=== PATIENT | male | born 1940 | race Caucasian/White ===

== ENCOUNTER 2022-07-25 09:30 | Outpatient (RCR) | payer OTHER, SELFPAY | END 2022-07-25 11:30 | disposition home or self-care (01) | PROVIDERS: PCP Family Medicine; Visit Provider Family Medicine | DX: M25.512 Pain in left shoulder (principal); Z51.89 Encounter for other specified aftercare | CPT/HCPCS: 97110; 97140; 97161 ==

== ENCOUNTER 2022-08-09 08:22 | Outpatient (CLI) | payer OTHER, SELFPAY ==
[2022-08-09 09:22] LABS: Chloride* 105 mmol/L (96-114)
[2022-08-09 09:23] LABS: Albumin* 3.6 g/dL (3.3-5.0); Potassium* 4.4 mmol/L (3.6-5.1); Sodium* 138 mmol/L (135-149)
[2022-08-09 09:25] LABS: Cholesterol* 134 mg/dL (90-199); Estimated Glomerular Filt Rate 75 ml/min
[2022-08-09 09:26] LABS: Alanine Aminotransferase* 20 U/L (4-50); Alkaline Phosphatase* 72 U/L (40-150); Aspartate Amino Transferase* 23 U/L (12-35); Bilirubin Total* 0.8 mg/dL (0.1-1.5); Blood Urea Nitrogen* 14 mg/dL (7-30); Calcium* 8.9 mg/dL (8.4-10.6); Carbon Dioxide* 28 mmol/L (20-32); Glucose* 102 mg/dL (60-115); HDL Cholesterol* 49 mg/dL (>=40); LDL Cholesterol Calculated 66 mg/dL (<100); Total Protein* 6.2 g/dL (6.0-8.3); Triglycerides* 95 mg/dL (40-149)
[2022-08-09 09:57] LABS: PSA Screen* 5.13 ng/mL (0.10-4.00)
== END 2022-08-09 08:23 | disposition home or self-care (01) ==
LOC: NFLDREF 08:22
PROVIDERS: PCP Family Medicine; Visit Provider Family Medicine
DX: Z00.00 Encounter for general adult medical examination without abnormal findings (principal); I25.10 Atherosclerotic heart disease of native coronary artery without angina pectoris; Z12.5 Encounter for screening for malignant neoplasm of prostate; E78.5 Hyperlipidemia, unspecified; I10 Essential (primary) hypertension
CPT/HCPCS: 80053; 80061; 84153

== ENCOUNTER 2023-03-10 10:21 | Outpatient (CLI) | payer OTHER, SELFPAY | END 2023-03-10 10:22 | disposition home or self-care (01) | PROVIDERS: PCP Family Medicine; Visit Provider Family Medicine | DX: Z01.818 Encounter for other preprocedural examination (principal) | CPT/HCPCS: 80048 ==

== ENCOUNTER 2023-03-19 16:40 | Inpatient (IN) | payer OTHER, SELFPAY ==
[2023-03-18] VITALS (25 sets, daily range): BP systolic 98–188; BP diastolic 63–133; PULSE 51–82; RESP 16–18; TEMP 35.7–37.2; O2SAT 93–98; BMI 31.1
[2023-03-18] MEDS: ACETAMINOPHEN 500 MG TABLET 1000 MG PO ×2 (09:15→17:48)
[2023-03-18] MEDS: CELECOXIB 200 MG CAPSULE PO (09:15)
[2023-03-18] MEDS: OXYCODONE (CR) 10 MG TAB.ER.12H PO (09:15)
[2023-03-18] MEDS: SODIUM CHLORIDE 0.9 % (FLUSH) 10 ML SYRINGE IVF (09:30)
[2023-03-18] MEDS: LACTATED RINGERS 1000 ML 1,000 ML 100 ML IV (09:30)
--- NOTE | 2023-03-18 11:17 | SUR.PREOP ---
TIME?OUT:?1117 PT/RN/MDA?VERIFICATION?OF?SURGICAL?SITE,?PROCEDURE,?AND?CONSENT OBTAINED?PRIOR?TO?INVASIVE?PROCEDURE.
[2023-03-18] MEDS: fentaNYL 100 MCG/2 ML inj IVP (11:19)
[2023-03-18] MEDS: MIDAZOLAM HCL 1 MG/ML inj IVP (11:19)
--- NOTE | 2023-03-18 11:31 | P.NB_ITS ---
Nerve Block Nerve Block Time Seen by Provider: : Date Seen: 03/18/23 Type of block requested by surgeon for post-operative analgesia: adductor canal Side: right Time out performed: Yes Verification of patient name: Yes Verification of date of : Yes Site marking: site marked Name of person performing procedure: Edgar Continuous monitoring Was continuous monitoring of O2 sat, B/P, quality assurance monitor, recorded every 15 minutes?: Yes Procedure Checklist: sterile prep, needles and gloves Ultrasound guided. Images saved: Yes Medications given in 5ml increments after negative aspiration: Ropivicaine %: 0.5 mL: 20 Needle gauge: 20 Decadron (mg): 10 Precedex (mcg): 25 Patient tolerated procedure well: Yes Additional comments: Needle noted adjacent to nerve Block Charges Block Charge (with Pro Fee): Femoral Nerve Use of Ultrasound Machine for Block: Yes- US Guidance/pain block
--- NOTE | 2023-03-18 11:31 | P.NB_ITS ---
Nerve Block Nerve Block Time Seen by Provider: : Date Seen: 03/18/23 Type of block requested by surgeon for post-operative analgesia: geniculars Side: right Time out performed: Yes Verification of patient name: Yes Verification of date of : Yes Site marking: site marked Name of person performing procedure: Edgar Continuous monitoring Was continuous monitoring of O2 sat, B/P, air sampling and monitoring, recorded every 15 minutes?: Yes Procedure Checklist: sterile prep, needles and gloves Medications given in 5ml increments after negative aspiration: Ropivicaine %: 0.5 mL: 9 Needle gauge: 25 Patient tolerated procedure well: Yes Block Charges Block Charge (with Pro Fee): Genicular Nerve Block Use of Ultrasound Machine for Block: No
--- NOTE | 2023-03-18 11:32 | W.ANESCHARGE ---
Anesthesia Charges Start Date/Time Anesthesia Start Date: 03/18/23 Anesthesia Start Time: 12:30 Stop Date/Time Anesthesia Stop Date: 03/18/23 Anesthesia Stop Time: 14:53 Summary Extremes of Age - Over 70 or under 1: MDA
[2023-03-18] MEDS: CEFAZOLIN 2 GM INJ IVP (12:40)
[2023-03-18] MEDS: TRANEXAMIC ACID 100 MG/ML INJ 1000 MG IV ×2 (12:45→14:11)
--- NOTE | 2023-03-18 13:52 | CRLHL7_ITS ---
For Patients: As a result of the Cures Act, medical imaging exams and procedure reports are released immediately into your electronic medical record. You may view this report before your referring provider. If you have questions, please contact your health care provider. Indication: Postop Technique: Two views right knee Findings/Impression: Hardware from a right total knee arthroplasty is in satisfactory position. Bone alignment is normal. No sign of acute fracture. Postop changes are within normal limits. Dictated by Fei Vela MD @ 03/19/2023 9:20:22 AM (Electronically Signed)
--- NOTE | 2023-03-18 13:54 | PM.ORPRC ---
Procedure Note Date of procedure: 03/18/23 Procedure: PREOPERATIVE DIAGNOSIS: Right knee osteoarthritis POSTOPERATIVE DIAGNOSIS: Right knee osteoarthritis NAME OF OPERATION: Right total knee arthroplasty SURGEON: Kasi Clement MD PAINTER AND BODY MECHANIC APPRENTICE: Regine Blanton PA-C ANESTHESIA: Spinal ESTIMATED BLOOD LOSS: 0 mL COMPLICATIONS: None SPECIMENS: None DRAINS: None PREOPERATIVE ANTIBIOTICS: Ancef 2 grams IMPLANTS: 1. J&J Attune # 9 posterior stabilized femur 2. # 9 fixed-bearing tibia 3. # 9 posterior stabilized, 5 mm fixed-bearing polyethylene 4. 41 patella INDICATIONS: The patient is a 82-year-old with a longstanding history of severe, unrelenting right knee pain secondary to end-stage (grade IV) right knee osteoarthritis. Despite appropriate nonoperative management, including activity modification, anti-inflammatories, [id number] pain medication, bracing, physical therapy, and injections they continue to have pain and disability. Operative intervention was offered. The risks, benefits and expected outcomes were discussed in detail. These included but were not limited to: Infection, bleeding, injury to blood vessel or nerve, venous thromboembolism. All questions were answered to their satisfaction. Use of an veterinary technician assistant was necessary throughout the case for patient positioning and safety, soft tissue retraction, and closure. PROCEDURE: Spinal anesthesia was administered. The patient was placed supine on the operating table. The veterinary technician assistant made sure the patient was positioned appropriately. The lower extremity was prepped and draped in the usual sterile fashion. The limb was exsanguinated with the Holger bandage. The pneumatic tourniquet was inflated to 300 mmHg. A standard anterior incision was made with the knee in flexion. Subcutaneous dissection was sharply taken through fascial layer #1. Full-thickness medial and lateral flaps were elevated. The veterinary technician assistant retracted the soft tissues and protected them throughout the case. A standard medial parapatellar approach was made. The patella was everted. The infrapatellar fat pad was preserved. The menisci and cruciate ligaments were sharply d?brided. Marginal osteophytes were d?brided with the rongeur. The drill was used to penetrate the femoral canal. The canal was aspirated and irrigated with pulse lavage. The intramedullary femoral guide was placed for a 5-degree valgus cut, removing 12 mm off the distal femur. The saw was used to make the cut. Whitesides line and the trans epicondylar axis were marked. The femoral sizing guide was pinned onto the distal femur. Three degrees of external rotation nicely parallels the transepicondylar axis. Pins were placed for posterior referencing. The four-in-one cutting guide was pinned onto the distal femur. The anterior, posterior, and chamfer cuts were made. The veterinary technician assistant protected the collateral ligaments. The box cutting guide was pinned. The box cuts were made. The boxed trial was placed and was an excellent fit. Drill holes for the lugs were made. Attention was then turned to the proximal tibia. The extramedullary tibial guide was placed for a neutral varus/valgus cut with 5 degrees of posterior slope, removing 2 mm based off the medial tibial surface. The veterinary technician assistant protected the collateral ligaments and the neurovascular bundle. The saw was used to make the cut. Trial components were placed. The knee was nicely balanced in both flexion and extension. The trial components were removed. The tray was placed in appropriate rotation, parallel to our tibial cutting pins. It was pinned by the veterinary technician assistant and the drill and the punch were used. The tray was removed. The punch was used again. We placed a bone plug in the femoral canal. Attention was then turned to the patella. [place] patellar thickness was 27 mm. The lobster claw resection guide was used with the 9.5 mm madhuri. The saw was used to make the cut. Drill holes were made by the veterinary technician assistant. The trial was placed and was an excellent fit. Cancellous surfaces were irrigated with pulse lavage and thoroughly dried by the veterinary technician assistant. We cemented the tibial component, then the femoral component. We impacted the 5 mm polyethylene onto the tibial tray. The knee was brought into full extension. We then cemented the patellar component. Excessive cement was removed. The cement was allowed to harden. The knee was taken through a range of motion and was found to be nicely balanced in both flexion and extension. The patella tracks centrally. The veterinary technician assistant irrigated the wound with 3 liters of normal saline via pulse lavage. The veterinary technician assistant reapproximated the extensor mechanism with #1 Vicryl in an interrupted [id number]-rn-kftci fashion. The veterinary technician assistant then ran the extensor mechanism with a #1 PDO Stratafix. The veterinary technician assistant closed the subcutaneous tissues with a 3-0 Stratafix and the skin with a running 3-0 Stratafix in a subcuticular fashion. Glue was used to seal the skin. The veterinary technician assistant placed a dry dressing, VICKI stocking, and Polar Care. Sponge and needle counts were correct x2. The patient tolerated the procedure well. There were no apparent complications. They were carefully transferred to the hospital bed and taken to the postanesthesia care unit in satisfactory condition. PLAN: The patient will be mobilized with physical therapy. Aspirin will be used for DVT prophylaxis. They will be discharged to home once medically appropriate.
--- NOTE | 2023-03-18 14:55 | W.ANESCHARGE ---
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
[2023-03-18] MEDS: LACTATED RINGERS 1000 ML 1,000 ML 75 ML IV (17:09)
[2023-03-18] MEDS: CEFAZOLIN 2 GM in 0.9 % SODIUM CHLORIDE Mini-bag 100 ML IVPB (18:59)
--- NOTE | 2023-03-18 19:51 | PM.IMCN1 ---
Date of Consult Patient: [facility] Patient Consult date: 03/18/23 Requesting Physician: Orthopedics Primary Care Provider: Bang Esposito MD Consult Narrative Reason for consult: Hypertension, coronary artery disease Narrative: Fei France is a 82 year old male underwent an elective right total knee arthroplasty today by Dr. Clement for osteoarthritis. He is doing well postoperatively. He has already gotten up to use the bathroom and had something to eat. He is just starting to feel some twinges in his knee and was going to ask for pain medications as he is likely due for those. He has otherwise been in good health and has had no chest pain or shortness of breath. Review of Systems Status of ROS: Reports: 10 or more systems reviewed and unremarkable except as noted in History and below PFSH [facility] Medical History (Updated 03/18/23 @ 21:10 by Carlotta Duarte MD) Murmur, cardiac ?R01.1 - Cardiac murmur, unspecified (ICD-10) Tubular adenoma of colon ?D12.6 - Benign neoplasm of colon, unspecified (ICD-10) Hyperlipidemia (05/25/13) ?E78.5 - Hyperlipidemia, unspecified (ICD-10) Coronary artery disease (05/25/13) ?I25.10 - Atherosclerotic heart disease of [place] coronary artery without angina pectoris (ICD-10) Hypertension (05/25/13) ?I10 - Essential (primary) hypertension (ICD-10) Tobacco use (05/25/13) ?Z72.0 - Tobacco use (ICD-10) Rash of hands (05/25/13) ?R21 - Rash and other nonspecific skin eruption (ICD-10) Asthma (05/25/13) ?J45.909 - Unspecified asthma, uncomplicated (ICD-10) Surgical History (Updated 03/18/23 @ 21:09 by Carlotta Duarte MD) H/O heart artery stent ?Z95.5 - Presence of coronary angioplasty implant and graft (ICD-10) History of hernia repair (05/25/13) ?Z98.890 - Other specified postprocedural states (ICD-10) ?Z87.19 - Personal history of other diseases of the digestive system (ICD-10) History of hemorrhoidectomy (05/25/13) ?Z98.890 - Other specified postprocedural states (ICD-10) History of eyelid surgery ?Z98.890 - Other specified postprocedural states (ICD-10) Family History Brother Diabetes Sister High blood pressure Father High blood pressure Social History Narrative: SOCIAL HISTORY: He is and retired. He worked various jobs at [employer] in [place]. He continues to live in [place]. Two children in the area and a number of grandchildren. HABITS: He is sexually active. Regular exercise - walking 4-6 x/wk. He is watching somebody's dog and this is getting him to walk more than he would otherwise. 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 No tobacco use or recreational drug use. Alcohol use is about 2 drinks per week (lower). FAMILY HISTORY: Unchanged. Both parents . Father of pneumonia and mother of multiple issues and arthritis. Brother with diabetes. Highest level of school completed/degree received: high school graduate Smoking Status: Former smoker What tobacco products do you use: cigarettes Smoking packs per day: 1 Smoking cigarettes per day: 20.0 Years smoked: 2 Smoking pack-years: 2.00 Smoking quit date/years: >15 years ago Do you use any of these nicotine containing products: None Second hand tobacco smoke exposure: No How often do you have a drink containing alcohol: monthly or less Alcohol type: beer and hard liquor How many standard drinks containing alcohol do you have on a typical day: 1 or 2 How often do you have six or more drinks on one occasion: Never AUDIT-C Alcohol total score: 1 Non-prescribed substance use: denies use Caffeine: Yes (coffee, 2 cups/morning) Little interest or pleasure in doing things: several days Feeling down, depressed, or hopeless: several days service: Yes Meds Home Medications and Allergies Home Medications Medication Instructions Recorded Confirmed Type ascorbic acid (vitamin C) 500 mg 500 mg PO .qd 05/14/22 03/18/23 History capsule cholecalciferol (vitamin D3) 25 1,000 unit PO DAILY 05/14/22 03/18/23 History mcg (1,000 unit) tablet aspirin 81 mg tablet,delayed 81 mg PO QDAY 03/10/23 03/18/23 History release Allergies Allergy/AdvReac Type Severity Reaction Status Date / Time dexamethasone Allergy Severe swelling Verified 03/18/23 09:11 neomycin Allergy Severe Swelling Verified 03/18/23 09:11 polymyxin B Allergy Severe swelling Verified 03/18/23 09:11 Shellfish Allergy Allergy Severe Swelling Uncoded 03/10/23 09:34 of Lip/Tongue/Throat Exam Narrative: Exam Narrative: General: No acute distress. Awake alert oriented x3. HEENT: Normocephalic atraumatic, pupils equally round and reactive to light and accommodation. Oropharynx clear. Mucous membranes are moist. No cervical lymphadenopathy, thyromegaly or carotid bruits. No JVD. Cardiovascular: Regular rate and rhythm. No murmurs, gallops, or rubs. Chest: No increased work of breathing. Clear to auscultation bilaterally. No crackles or wheezes. Abdomen: Bowel sounds present. Soft, nondistended, nontender. No hepatosplenomegaly or masses. Extremities: Right knee bandage is clean, dry, and intact. No edema, no cyanosis or clubbing. Skin: No jaundice, no pallor, no rashes. Const: Vital Signs, click to edit/add: Vital Signs - 24 hr 03/18/23 09:18 03/18/23 11:19 03/18/23 11:25 Temperature 98.9 F Pulse Rate 73 62 64 Pulse Rate [Left P ulse Oximeter] Respiratory Rate 16 16 16 Blood Pressure 165/101 H 177/78 H 148/75 H Blood Pressure [Ri ght Arm] Pulse Oximetry 97 96 97 Oxygen Delivery Me thod Room Air Nasal Cannula Nasal Cannula Oxygen Flow Rate 2 2 03/18/23 11:30 03/18/23 11:45 03/18/23 12:00 Temperature Pulse Rate 65 62 60 Pulse Rate [Left P ulse Oximeter] Respiratory Rate 16 16 16 Blood Pressure 148/70 H 145/69 H 124/66 Blood Pressure [Ri ght Arm] Pulse Oximetry 97 97 97 Oxygen Delivery Me thod Nasal Cannula Nasal Cannula Nasal Cannula Oxygen Flow Rate 2 2 2 03/18/23 14:50 03/18/23 14:55 03/18/23 15:00 Temperature 97.2 F L Pulse Rate 54 L 55 L 52 L Pulse Rate [Left P ulse Oximeter] Respiratory Rate 16 16 16 Blood Pressure 106/68 129/71 146/74 H Blood Pressure [Ri ght Arm] Pulse Oximetry 96 96 97 Oxygen Delivery Me thod Room Air Room Air Room Air Oxygen Flow Rate 03/18/23 15:05 03/18/23 15:10 03/18/23 15:15 Temperature Pulse Rate 51 L 52 L 52 L Pulse Rate [Left P ulse Oximeter] Respiratory Rate 16 16 16 Blood Pressure 156/67 H 139/70 147/82 H Blood Pressure [Ri ght Arm] Pulse Oximetry 97 98 98 Oxygen Delivery Me thod Room Air Room Air Room Air Oxygen Flow Rate 03/18/23 15:21 03/18/23 15:30 03/18/23 15:30 Temperature 96.9 F L 96.3 F L 96.3 F L Pulse Rate 52 L 57 L Pulse Rate [Left P ulse Oximeter] 57 L Respiratory Rate 16 16 16 Blood Pressure 159/71 H Blood Pressure [Ri ght Arm] 98/84 98/84 Pulse Oximetry 98 98 Oxygen Delivery Me thod Room Air Room Air Room Air Oxygen Flow Rate 03/18/23 15:45 03/18/23 16:00 03/18/23 16:15 Temperature 97.1 F L Pulse Rate Pulse Rate [Left P ulse Oximeter] 57 L 60 60 Respiratory Rate 16 16 16 Blood Pressure Blood Pressure [Ri ght Arm] 139/86 150/99 H 167/133 H Pulse Oximetry 98 98 97 Oxygen Delivery Me thod Room Air Room Air Room Air Oxygen Flow Rate 03/18/23 16:30 03/18/23 17:30 03/18/23 18:00 Temperature Pulse Rate Pulse Rate [Left P ulse Oximeter] 65 82 73 Respiratory Rate 18 18 18 Blood Pressure Blood Pressure [Ri ght Arm] 166/72 H 153/70 H 136/74 Pulse Oximetry 98 96 97 Oxygen Delivery Me thod Room Air Room Air Room Air Oxygen Flow Rate 03/18/23 19:00 Temperature 98.9 F Pulse Rate Pulse Rate [Left P ulse Oximeter] 76 Respiratory Rate 18 Blood Pressure Blood Pressure [Ri ght Arm] 144/63 H Pulse Oximetry 98 Oxygen Delivery Me thod Room Air Oxygen Flow Rate Documenting provider has reviewed patient's vital signs: yes Assessment and Plan Assessment and plan (1) Status post right knee replacement: Problem comment: - 03/18/2023 Dr. Clement - routine postop cares - VTE prophylaxis with twice a day aspirin Status: Acute (2) Osteoarthritis of right knee: Problem comment: End-stage right knee medial and patellofemoral compartment osteoarthritis Status: Acute (3) Hypertension: Problem comment: Hold lisinopril tomorrow morning. This can be restarted if he becomes hypertensive. Status: Chronic (4) Murmur, cardiac: Problem comment: I did not appreciate this on today's exam. Status: Chronic (5) Hyperlipidemia: Problem comment: Continue simvastatin Status: Chronic (6) Coronary artery disease: Problem comment: - s/p stent x 1 in 2011 [facility] - asymptomatic. Continue aspirin starting tomorrow. Status: Chronic
[2023-03-18] MEDS: OXYCODONE 5 MG TABLET PO (20:10)
[2023-03-18] MEDS: HYDROmorphone 0.5 mg/0.5 ml inj IVP (21:28)
[2023-03-18] MEDS: SENNOSIDES 1 TAB TABLET 2 TAB PO (21:28)
[2023-03-18] MEDS: ASPIRIN 81 MG TABLET EC PO (21:28)
[2023-03-18] MEDS: SIMVASTATIN 40 MG TABLET PO (21:36)
--- NOTE | 2023-03-18 22:31 | PC.NURSE ---
Shift [id number]- Patient arrives from PACU at approximately 1530. He is alert and oriented, denies pain for several hours this afternoon. Cryocuff in place. This evening, he receives oxycodone for pain, without much relief. Dilaudid then administered with relief. He has one incontinent void in bed before first arising, but is otherwise up to bathroom, then up to chair. Appetite intact.
[2023-03-19] VITALS (7 sets, daily range): BP systolic 132–181; BP diastolic 64–113; PULSE 66–87; RESP 16–20; TEMP 36.5–37.1; O2SAT 94–99
[2023-03-19] MEDS: ACETAMINOPHEN 500 MG TABLET 1000 MG PO ×4 (00:07→18:39)
[2023-03-19] MEDS: OXYCODONE 5 MG TABLET PO ×6 (02:26→22:12)
[2023-03-19] MEDS: CEFAZOLIN 2 GM in 0.9 % SODIUM CHLORIDE Mini-bag 100 ML IVPB (02:29)
--- NOTE | 2023-03-19 06:31 | PC.NURSE ---
Pt is oriented to self x3. Afebrile. Pt reports 6/10 pain in right knee, pain managed with PRN medications. Right knee dressing CDI. Pt denies chest pain, SOB, N/V. Pt is tolerating a regular diet and voiding. Pt is up SBA with walker and gait belt. Pt slept throughout most of night.??
[2023-03-19 06:33] LABS: Basophils Percent Auto 0.1 % (0.0-3.0); Hematocrit 40.6 % (37.0-53.0); Hemoglobin* 13.6 gm/dL (13.5-17.5); Immature Granulocytes Pct Auto 0.1 %; Lymphocytes Percent Auto 6.3 % (20-44); Mean Corpuscular HGB Conc 34 gm/dL (32-36); Mean Corpuscular Hemoglobin 30 pg (26-34); Mean Corpuscular Volume 90 fL (80-100); Monocytes Percent Auto 6.5 % (0.0-11.0); Platelet Count* 257 K/uL (140-440); RDW Coefficient of Variation % 13.5 % (11.5-15.5); Red Blood Count 4.51 m/uL (4.30-5.90); White Blood Count* 17.03 K/uL (4.50-11.00)
[2023-03-19 06:37] LABS: Slide Review Reflex No
[2023-03-19 06:43] LABS: Potassium* 3.9 mmol/L (3.6-5.1); Sodium* 136 mmol/L (135-149)
[2023-03-19 06:45] LABS: INR 1.03 (0.91-1.10); Prothrombin Time 14.1 Seconds
[2023-03-19 06:46] LABS: Blood Urea Nitrogen* 15 mg/dL (7-30); Creatinine* 0.8 mg/dL (0.5-1.5); Est. Creatinine Clearance* 65.72; Estimated Glomerular Filt Rate 87 ml/min
[2023-03-19] MEDS: ASPIRIN 81 MG TABLET EC PO ×2 (08:30→22:12)
[2023-03-19] MEDS: SENNOSIDES 1 TAB TABLET 2 TAB PO ×2 (08:30→22:11)
[2023-03-19] MEDS: ASCORBIC ACID 500 MG TABLET PO (08:30)
--- NOTE | 2023-03-19 08:38 | PM.ORPN ---
Subjective Subjective Time Seen by Provider: 07:20 Date Seen: 03/19/23 Principal diagnosis: Status post right knee replacement Interval history: Fei is comfortable this morning. He plans to go to a [facility] today. Ortho Exam Narrative Exam Narrative: Alert and oriented x3. Patient is in no acute distress. Converses without labored breathing. Hearing is grossly intact. Ambulates with a Walker. Examination of the right knee shows no erythema or warmth or sign of infection. Dressing is in place and intact. Mild soft tissue edema. Mild effusion. Bilateral calves are soft and nontender. Good quad strength. CMS intact right lower extremity Const Vital Signs, click to edit/add: Vital Signs - 24 hr 03/18/23 09:18 03/18/23 11:19 03/18/23 11:25 Temperature 98.9 F Pulse Rate 73 62 64 Pulse Rate [Left Pulse Oximeter] Respiratory Rate 16 16 16 Blood Pressure 165/101 H 177/78 H 148/75 H Blood Pressure [Right Arm] Pulse Oximetry 97 96 97 Oxygen Delivery Method Room Air Nasal Cannula Nasal Cannula Oxygen Flow Rate 2 2 03/18/23 11:30 03/18/23 11:45 03/18/23 12:00 Temperature Pulse Rate 65 62 60 Pulse Rate [Left Pulse Oximeter] Respiratory Rate 16 16 16 Blood Pressure 148/70 H 145/69 H 124/66 Blood Pressure [Right Arm] Pulse Oximetry 97 97 97 Oxygen Delivery Method Nasal Cannula Nasal Cannula Nasal Cannula Oxygen Flow Rate 2 2 2 03/18/23 14:50 03/18/23 14:55 03/18/23 15:00 Temperature 97.2 F L Pulse Rate 54 L 55 L 52 L Pulse Rate [Left Pulse Oximeter] Respiratory Rate 16 16 16 Blood Pressure 106/68 129/71 146/74 H Blood Pressure [Right Arm] Pulse Oximetry 96 96 97 Oxygen Delivery Method Room Air Room Air Room Air Oxygen Flow Rate 03/18/23 15:05 03/18/23 15:10 03/18/23 15:15 Temperature Pulse Rate 51 L 52 L 52 L Pulse Rate [Left Pulse Oximeter] Respiratory Rate 16 16 16 Blood Pressure 156/67 H 139/70 147/82 H Blood Pressure [Right Arm] Pulse Oximetry 97 98 98 Oxygen Delivery Method Room Air Room Air Room Air Oxygen Flow Rate 03/18/23 15:21 03/18/23 15:30 03/18/23 15:30 Temperature 96.9 F L 96.3 F L 96.3 F L Pulse Rate 52 L 57 L Pulse Rate [Left Pulse Oximeter] 57 L Respiratory Rate 16 16 16 Blood Pressure 159/71 H Blood Pressure [Right Arm] 98/84 98/84 Pulse Oximetry 98 98 Oxygen Delivery Method Room Air Room Air Room Air Oxygen Flow Rate 03/18/23 15:45 03/18/23 16:00 03/18/23 16:15 Temperature 97.1 F L Pulse Rate Pulse Rate [Left Pulse Oximeter] 57 L 60 60 Respiratory Rate 16 16 16 Blood Pressure Blood Pressure [Right Arm] 139/86 150/99 H 167/133 H Pulse Oximetry 98 98 97 Oxygen Delivery Method Room Air Room Air Room Air Oxygen Flow Rate 03/18/23 16:30 03/18/23 17:30 03/18/23 18:00 Temperature Pulse Rate Pulse Rate [Left Pulse Oximeter] 65 82 73 Respiratory Rate 18 18 18 Blood Pressure Blood Pressure [Right Arm] 166/72 H 153/70 H 136/74 Pulse Oximetry 98 96 97 Oxygen Delivery Method Room Air Room Air Room Air Oxygen Flow Rate 03/18/23 19:00 03/18/23 20:00 03/18/23 21:00 Temperature 98.9 F Pulse Rate Pulse Rate [Left Pulse Oximeter] 76 62 67 Respiratory Rate 18 18 18 Blood Pressure Blood Pressure [Right Arm] 144/63 H 135/75 110/96 H Pulse Oximetry 98 94 94 Oxygen Delivery Method Room Air Room Air Room Air Oxygen Flow Rate 03/18/23 22:00 03/18/23 23:50 03/18/23 23:50 Temperature Pulse Rate Pulse Rate [Left Pulse Oximeter] 71 78 Respiratory Rate 18 Blood Pressure Blood Pressure [Right Arm] 188/89 H Pulse Oximetry 93 95 Oxygen Delivery Method Room Air Oxygen Flow Rate 03/18/23 23:50 03/19/23 02:30 03/19/23 07:26 Temperature 97.8 F 97.7 F Pulse Rate Pulse Rate [Left Pulse Oximeter] 78 66 Respiratory Rate 18 16 Blood Pressure Blood Pressure [Right Arm] 154/65 H 147/78 H Pulse Oximetry 95 96 97 Oxygen Delivery Method Room Air Room Air Oxygen Flow Rate 03/19/23 07:29 Temperature 98.1 F Pulse Rate Pulse Rate [Left Pulse Oximeter] 72 Respiratory Rate 16 Blood Pressure Blood Pressure [Right Arm] 164/77 H Pulse Oximetry 97 Oxygen Delivery Method Room Air Oxygen Flow Rate Assessment and Plan Assessment and plan (1) Status post right knee replacement: Problem details: - 03/18/2023 Dr. Clement - routine postop cares - VTE prophylaxis with twice a day aspirin Status: Acute Assessment and Plan: Plan for discharge is today to shelter facility if they meet discharge criteria. DVT prophylaxis includes aspirin 81 mg twice daily x1 month, [place] stockings x1 month may remove for 1 hr per day, frequent ambulation Remove dressing in 1 week. Observe wound and phone Orthopedics with any questions or concerns Return to clinic in 1 week for a wound check Return to clinic in [address] Clement Minimize narcotic use. Wean off and discontinue soon as possible. Activities as tolerated. No strenuous activity. Outpatient physical therapy as scheduled. Ice and elevate the operative extremity. No restriction on ice. Waiting on social work job titles for [facility] placement. Once [facility] plan is available, orthopedic medications will be sent. (2) Osteoarthritis of right knee: Problem details: End-stage right knee medial and patellofemoral compartment osteoarthritis Status: Acute (3) Hypertension: Problem details: Hold lisinopril tomorrow morning. This can be restarted if he becomes hypertensive. Status: Chronic (4) Murmur, cardiac: Problem details: I did not appreciate this on today's exam. Status: Chronic (5) Hyperlipidemia: Problem details: Continue simvastatin Status: Chronic (6) Coronary artery disease: Problem details: - s/p stent x 1 in 2011 [facility] - asymptomatic. Continue aspirin starting tomorrow. Status: Chronic
--- NOTE | 2023-03-19 12:58 | PC.SOCIAL ---
Discharge planning- Met with pt in pt's room to discuss discharge plans. Pt would like a SNF as he does not have assistance in home during recovery. Discussed cost for SNF. Pt states he has called his insurance three times and was told by insurance that he would not need a 3 night stay. Informed pt that SNF will check coverage and this worker will keep pt updated. Pt would like to go to [facility], informed pt that there are no openings at this time. Pt then choses [facility] or [facility]. Phone call to [facility] to Alva in admissions. Alva informs there are no male beds currently, but states they may have a discharge in the next day and then have availability. Phone call to [facility] and spoke to Katlyn in admissions. There is an opening. Faxed referral to [phone]. Katlyn states she can accept pt, but pt's insurance requires a prior auth. Katlyn will start the process for prior auth. Update to pt and nursing. Social work will follow up as needed.
--- NOTE | 2023-03-19 13:11 | PC.NURSE ---
Shift Summary: Patient pleasant and cooperative. Up with one assist, walker and gait belt. Vitals stable and WNL. Pain managed with PRN medication and continuous ice. Patient awaiting placement at this time. Tolerating regular diet well, denies nausea. Voiding well. Dressing over surgical site dry and intact.
[2023-03-19] MEDS: SIMVASTATIN 40 MG TABLET PO (22:12)
[2023-03-20] MEDS: ACETAMINOPHEN 500 MG TABLET 1000 MG PO ×2 (00:25→07:26)
[2023-03-20 03:45] VITALS: BP 167/73; PULSE 63; RESP 16; TEMP 36.6; O2SAT 98
[2023-03-20] MEDS: OXYCODONE 5 MG TABLET PO ×3 (03:47→10:29)
--- NOTE | 2023-03-20 06:44 | PC.NURSE ---
Pt is oriented to self x3. Afebrile. Pt reports 6/10 pain in right knee, pain managed with PRN and scheduled medications. Right knee dressing CDI. Pt denies chest pain, SOB, N/V. Pt is tolerating a regular diet and voiding. Pt is up SBA with walker and gait belt. Pt slept throughout most of night.??
[2023-03-20 07:02] LABS: Basophils Percent Auto 0.1 % (0.0-3.0); Eosinophils Percent Auto 1.7 % (0.0-7.0); Hematocrit 39.2 % (37.0-53.0); Hemoglobin* 12.9 gm/dL (13.5-17.5); Immature Granulocytes Pct Auto 0.2 %; Lymphocytes Percent Auto 17.1 % (20-44); Mean Corpuscular HGB Conc 33 gm/dL (32-36); Mean Corpuscular Hemoglobin 30 pg (26-34); Mean Corpuscular Volume 91 fL (80-100); Monocytes Percent Auto 10.7 % (0.0-11.0); Neutrophils Percent Auto 70.2 % (42.0-72.0); Platelet Count* 234 K/uL (140-440); Red Blood Count 4.33 m/uL (4.30-5.90); White Blood Count* 12.89 K/uL (4.50-11.00)
[2023-03-20 07:05] LABS: Slide Review Reflex No
[2023-03-20 07:12] LABS: Potassium* 3.9 mmol/L (3.6-5.1); Sodium* 136 mmol/L (135-149)
[2023-03-20 07:15] LABS: Blood Urea Nitrogen* 18 mg/dL (7-30); Creatinine* 0.9 mg/dL (0.5-1.5); Est. Creatinine Clearance* 65.72; Estimated Glomerular Filt Rate 84 ml/min
[2023-03-20 07:17] LABS: INR 1.05 (0.91-1.10); Prothrombin Time 14.3 Seconds
[2023-03-20] MEDS: ASCORBIC ACID 500 MG TABLET PO (08:36)
[2023-03-20] MEDS: ASPIRIN 81 MG TABLET EC PO (08:37)
[2023-03-20] MEDS: SENNOSIDES 1 TAB TABLET 2 TAB PO (08:37)
[2023-03-20 09:19] VITALS: O2SAT 97
[2023-03-20 09:26] VITALS: BP 150/85; PULSE 90; RESP 18; TEMP 37.2; O2SAT 93
--- NOTE | 2023-03-20 09:32 | PM.DS1 ---
DS: Providers Provider Date Seen: 03/20/23 Date of admission: 03/19/23 16:40 Primary care physician: Bang Esposito MD Admitting Clinician: Kasi Clement MD Consults: PT, OT, SW Attending Physician on discharge: Kasi Clement MD Date of Discharge: 03/20/23 DS: Diagnosis Discharge Diagnosis (1) Status post right knee replacement: Status: Acute Problem details: - 03/18/2023 Dr. Clement DS: Summary Hospital Course Hospital Course: Fei was admitted on 03/18 for an elective R TKA. Patient did well postoperatively and comorbidities remained stable; no changes made to home medications during stay. Given age and comorbidities, requested SNF upon discharge. Prophylaxis and pain management per Orthopedic surgery team. Patient will be discharged to SNF with routine follow-up with therapies, orthopedic surgery, and PCP. Status at Discharge Functional status at discharge: uses cane/walker Time Spent with Patient Time attestation: Total time spent providing and/or coordinating discharge services: Time spent: Less than 30 minutes Exam Narrative: Exam Narrative: GEN: Alert and sitting comfortably in bed, nontoxic HEENT: EOMIs bilaterally, no scleral icterus CV: RRR, No concerning murmurs R: LCTA bilaterally, air movement adequate Ext: Wearing bilateral Vicki hose, able to wiggle toes bilateral, normal capillary refill Skin: No concerning skin lesions or rashes on exposed skin Neuro: Nonfocal Psych: Appropriate Const: Vital Signs, click to edit/add: Vital Signs - 24 hr 03/19/23 11:16 03/19/23 15:00 03/19/23 15:00 Temperature 98.8 F Pulse Rate [Left P ulse Oximeter] 87 87 Respiratory Rate 18 18 Blood Pressure [Ri ght Arm] 164/84 H Pulse Oximetry 94 94 Oxygen Delivery Me thod Room Air 03/19/23 15:00 03/19/23 19:00 03/19/23 23:30 Temperature 98.6 F 98.4 F Pulse Rate [Left P ulse Oximeter] 72 72 Respiratory Rate 18 18 Blood Pressure [Ri ght Arm] 140/113 H 132/78 Pulse Oximetry 96 96 99 Oxygen Delivery Me thod Room Air Room Air 03/19/23 23:30 03/19/23 23:30 03/20/23 03:45 Temperature 98.6 F 97.9 F Pulse Rate [Left P ulse Oximeter] 81 81 63 Respiratory Rate 20 18 16 Blood Pressure [Ri ght Arm] 181/64 H 167/73 H Pulse Oximetry 99 98 Oxygen Delivery Ar thod Room Air Room Air 03/20/23 09:19 03/20/23 09:26 Temperature 98.9 F Pulse Rate [Left P ulse Oximeter] 90 Respiratory Rate 18 Blood Pressure [Ri ght Arm] 150/85 H Pulse Oximetry 97 93 Oxygen Delivery Ar thod Room Air DS: Data Data Completed and Pending Labs on day of discharge: Labs from last 24 hours 03/20/23 06:35 WBC 12.89 H RBC 4.33 Hgb 12.9 L Hct 39.2 MCV 91 MCH 30 MCHC 33 RDW Coeff of Maggie 14.0 Plt Count 234 Neut % (Auto) 70.2 Lymph % (Auto) 17.1 L [place] % (Auto) 10.7 Eos % (Auto) 1.7 Baso % (Auto) 0.1 Neut # (Auto) 9.00 H Lymph # (Auto) 2.20 [place] # (Auto) 1.40 H Eos # (Auto) 0.20 Baso # (Auto) 0.00 Abs Immat Gran (auto) 0.00 Imm/Tot Granulo (auto) 0.2 INR 1.05 Sodium 136 Potassium 3.9 BUN 18 Creatinine 0.9 Estimated Creat Clear 65.72 Estimated GFR 84 Discharge Plan Discharge Disposition: [facility] Date of Admission: 03/19/23 16:40 Attending Provider on Discharge: Alejandra Santiago Consulting Providers: Alysha Brunner; Alejandra Santiago; Alexa Fernandez; Physician,[place]; [place]; Parker Pineda; Denys Wheeler; Quentin Miller; Rosy Breen; Joie Cameron; Margaret Quiroga; Aramis Gutierrez; Zaynab Jimenez; Carlotta Duarte; Johnny Kiran; Sharath Liu; Elsa Huffman; Israel Gloevr; Guillermo Pierre; Lydia Modi; Laura Harris; Jessica Hollingsworth; Prasad Norris; Almas Luna; Nic Garcia; Nighat Lema; Misty Joe; Lei Fitzgerald Primary Care Provider: Bang Esposito Condition: Stable Anticipated Discharge Date/Time: 03/20/23 09:23 Discharge Medications: New sennosides [Senna Lax] 8.6 mg Tablet 8.6 mg PO BID PRN (Reason: constipation) Qty: 20 0RF aspirin 81 mg Tablet,Delayed Release (Dr/Ec) 81 mg PO BID Qty: 60 0RF acetaminophen 500 mg Tablet 1,000 mg PO Q6H Qty: 60 0RF bisacodyl 10 mg Suppository 10 mg CA DAILY PRN (Reason: Constipation) Qty: 12 0RF oxycodone 5 mg Tablet 2.5 - 10 mg PO Q2H PRN (Reason: Pain) Qty: 20 0RF Continued ascorbic acid (vitamin C) 500 mg capsule 500 mg PO .qd cholecalciferol (vitamin D3) 25 mcg (1,000 unit) tablet 1,000 unit PO DAILY simvastatin 40 mg tablet 40 mg PO .Bedtime Qty: 90 3RF lisinopril 10 mg tablet 10 mg PO DAILY Qty: 90 3RF Held aspirin 81 mg tablet,delayed release (DR/EC) 81 mg PO QDAY Hold Instructions: Resume on 04/17/23. Resume this when finished with aspirin 81 mg twice daily for 1 month Discharge Orders: Discharge Order (Routine); Ordered 03/20/23 Ordered By: Alejandra Santiago Consulting provider completed their portion of the discharge: Yes Additional Instructions: Wound: ?Do not remove original dressing; we will remove this at first postop visit in 1 week. Only remove dressing if integrity is in question. ?No immersing wound in water; showering okay; light scrub with your hand and body soap, rinse, dab dry ?Sutures are under the skin, will dissolve; allow surgical glue to come off naturally; do not scrub the wound or apply ointments/lotions ?Call our office with any redness that streaks, excessive drainage from the wound, or wound gapping. Ice/Elevate: ?Ice as needed for swelling and discomfort (cryocuff or ice pack); elevate frequently above the heart VICKI socks: ?Wear for 1 month, remove for 1 hour 3 times per day ?These are frustrating to take on/off, but are important for blood clot prevention for 1 month after surgery Blood Clot Prevention (DVT): ?Medication: Aspirin Ambulate every hour throughout the day Driving: ?Do not drive while taking narcotic pain medication ?Anticipate 4-6 weeks no driving if operative leg is driving leg Dental: ?No elective dental work for 6 months post-op. If there is an urgent/emergent dental need, contact our office for an antibiotic prescription. Smoking/Alcohol: ?Do not smoke; do no drink alcohol especially when taking postoperative oral narcotic medication Seek Care from you Primary Care Provider if you experience the following issues in the postoperative phase and beyond: ?Bacterial infections such as: pneumonia, bacterial skin infection (cellulitis), UTI, high fever, chills unrelated to the operative body part - call your primary care physician urgently for treatment in hopes to protect your health and the metal implant. Referrals: ?PT, OT per patient preference - evaluate treat total knee arthroplasty protocol (gait training, ROM, ADLs) Follow up: ?Ortho surgeon follow-up in 6 weeks; repeat radiographs three views operative knee ?PA-C visit in 1 week *If there are any acute concerns regarding your surgery, please call our orthopedic clinic ([phone]) Activity Level: Activity as Tolerated and No strenuous activity Activity Detail: Keep dressing on for 1 week. Dressing is waterproof. May shower. Surgical glue covers the wound. Attend outpatient physical therapy if scheduled. Ice and elevate operative extremity without restriction. Wear compression stockings for 1 month post surgery. May remove for 1 hour per day. Ambulate every hour throughout the day. If you drive, Do not drive while taking narcotic pain medication. Do not drink alcohol while taking narcotic pain medication. May drive when safe to do so and have full function of the extremities, this may take 6 weeks or more. Notify Orthopedics with any questions or concerns. ([phone]) Activity Restrictions: per therapies Discharge Diet: Regular Follow Up Appointments: [facility] [Outside] (Patient being discharged to [facility]. ) Bang Esposito MD [Primary Care Provider] - (prn) Cecile Sanchez PA-C [Physician Information Systems Security Officer] - 03/26/23 9:30 am ([facility] for follow-up.) Forms: Work/School Release Discharge Comments: PT and OT daily at correction facility Wound Care: n/a Ostomy Care: n/a Admit to: SNF Discharge Potential: Good Length of Stay: <30 days Can use facility standing orders?: Yes Code Status: Full Code TEDs: Bilateral Knee Rehab Potential: Good Therapy: Physical Therapy and Occupational Therapy Therapy Orders: Total Knee Protocol Oxygen: No Urinary Catheter: No Glucose Checks: n/a Next INR: n/a Orders are good >30 days: Yes Signature: Alejandra Santiago MD
--- NOTE | 2023-03-20 10:17 | PC.SOCIAL ---
Discharge planning- Received a phone call from Katlyn in admissions at [facility]. Katlyn states pt's insurance prior authorized stay for one week. Katlyn would like this worker to ensure pt is aware of the short stay. [facility] can accept pt today. Met with pt in room. Provided update to pt on SNF stay. Pt informs that the week will work perfectly as pt's brother is going to install railings and grab bars in the next few days at his home. Pt's son will pick pt up from [facility] upon discharge at 10:30 am. Provided update to charge nurse and assigned nurse. Phone call to Katlyn at [facility] to provide update on timing of discharge. Completed preadmission screening. Confirmation #[id number]. Social work will follow up as needed.
[2023-03-20 10:45] VITALS: BP 150/85; PULSE 90; RESP 18; TEMP 37.2
--- NOTE | 2023-03-20 12:32 | PC.NURSE ---
shift note: pt up sba/walker. pt rating pain 7-8/10 rt knee. pt medicated with oxycodone and scheduled tylenol with relief. PP+ bilat with intact cms. IV dc'd intact. LS clr. drsg to rt knee c/d/i. cryo cuff sent with pt at dc. Belongings and dc orders sent with pt at pa. Pt traveled to [facility] via private vehicle with son. Nurse to nurse given via phone @ [phone].
== END 2023-03-20 10:34 | DRG 470 ==
LOC: OR 16:41 → MEDSURG 16:41
PROVIDERS: Admitting Provider Orthopaedic Surgery; PCP Family Medicine; Visit Provider Orthopaedic Surgery
PROC: 0SRC0J9 Replacement of Right Knee Joint with Synthetic Substitute, Cemented, Open Approach (ICD-10-PCS; CPT 27447; principal; 2023-03-18 12:45)
DX: M17.11 Unilateral primary osteoarthritis, right knee (principal); G89.18 Other acute postprocedural pain; I10 Essential (primary) hypertension; I25.10 Atherosclerotic heart disease of native coronary artery without angina pectoris; E78.5 Hyperlipidemia, unspecified; R01.1 Cardiac murmur, unspecified; J45.909 Unspecified asthma, uncomplicated; Z95.5 Presence of coronary angioplasty implant and graft
CPT/HCPCS: 01402; 36415; 64447; 64454; 73560; 76942; 82565; 84132; 84295; 84520; 85025; 85610; 97110; 97116; 97161; 97166; 97530; 97535; 99100; A9270; C1776; J0690; J1100; J1170; J2250; J2704; J2795; J3010; J7120

== ENCOUNTER 2023-04-30 12:44 | Outpatient (CLI) | payer OTHER, SELFPAY | END 2023-04-30 12:45 | disposition home or self-care (01) | LOC: NFLDREF 05-02 06:44 | PROVIDERS: PCP Family Medicine; Referring Provider Family Medicine; Visit Provider Family Medicine | DX: R30.0 Dysuria (principal); J01.90 Acute sinusitis, unspecified; B96.89 Other specified bacterial agents as the cause of diseases classified elsewhere; N39.0 Urinary tract infection, site not specified | CPT/HCPCS: 87086; 87186 ==

== ENCOUNTER 2023-05-20 13:14 | Outpatient (CLI) | payer OTHER, SELFPAY | END 2023-05-20 13:15 | disposition home or self-care (01) | LOC: NFLDREF 05-21 05:56 | PROVIDERS: PCP Family Medicine; Referring Provider Family Medicine; Visit Provider Family Medicine | DX: N39.0 Urinary tract infection, site not specified (principal) | CPT/HCPCS: 87086 ==

== ENCOUNTER 2023-06-17 14:45 | Outpatient (RCR) | payer OTHER, SELFPAY ==
--- NOTE | 2023-03-12 09:26 | PT.OPEX ---
PT [place] Outpatient Eval PT [facility] Outpatient Eval Start: 03/12/23 07:10 Freq: Status: Active Protocol: Document 03/12/23 07:17 TOD (Rec: 03/12/23 07:25 CLToy [id number]) E-signed By Dominique Hollins PT Physical Therapy Outpatient Evaluation Insurance Information Recert Due Date 06/06/23 Insurance Name Medicare B Medical Diagnosis Pre-Op for Rt TKA (DOS 03/18/23 ) Treating Diagnosis Chronic Rt knee pain secondary OA Prior Cortisone injections no longer beneficial Referring MD Dr Kasi Clement Subjective Subjective Fei reports having previous injections, which just became less beneficial. Finally got to the point where it is just plain worn out and I need a replacement. I am a bit nervous about it. He has been wearing a knee brace intermittently for a few years . Pain is intermittent, but can be very sharp and intense with a knee twist like walking on uneven surfaces, etc. He does have some edema, but not too much. He can pretty much do most self cares and yard work, just slower. He has not been using ice and only occasional Tylenol. He has a split level house with 2 flights of stairs. Bedroom is upstairs. He would like to go to a [facility] for a few days. My and my son Zion will be at home to help me. He is taking FMLA to help. Step over shower. Will get a shower chair. He has a Walker he will be borrowing. He has 7 steps to get up into his house . Has railing on the Left side ascending. His son is replacing his toilet today to a high riser which is nearly 3 higher than a normal toilet. He has hand rails in bathroom too. He recently replaced his sidewalk so it is nice and smooth to walk on after surgery. My mailbox is about 300 feet round trip. I sit and rest for a few min after that walk. Can stand and walk for maybe 20 min then rest for a few minutes. I do this all day long. Can walk in [place] but get very tired. Pain Comments 2-6/10 at Rt knee. He is Rt dominant Date of Last Physician Visit 02/05/23 Current Work Status Retired Precautions Treatment Precautions/Contraindications Cardiac concerns/stent placement Prior Surgical Hernia Repair Prior Smoker OA Hypertension Allergies Weight Bearing Status Weight Bear as Tolerated Therapy Limitations/Systems Review Not Limited Objective Range of Motion Rt involved knee 10-127 Lt knee 7-128 Swelling Mid patellar girth: Rt knee = 42.6 cm Lt knee = 42 Assessment Assessment/Impression 82 yo with DX of Pre-Op Rt TKA . He arrived to dept via IND ambulation without any AD. He ambulates with slight reduction in heel to toe push off, long and symmetric strides. He is lacking full knee ext jacky. His AROM is Rt 10-127 / Lt 7-128 deg. He does not have any significant edema with mid patellar measurements of: Rt 42.6 cm / Lt 42 cm. He can sit to stand without use of UE on chair arms, stands with a WBOS. SLS average 3 seconds jacky. IND in all bed mobility and don/doff clothing. He is wearing a Rt knee brace, but states he does not wear it at all times. His standing tolerance is roughly 20 minutes. He does not have any AD, but is borrowing a WW from a friend. He used one correctly in our dept during evaluation. He was also able to A/D flight of 5 steps with proper step to gait, but seemed a bit forgetful with which leg to use descending. He will need review of this. He was educated in use of ice post-op, entire HEP and safety at home to reduce fall risk. His son will be staying with him, plan to go to [facility] for at least one week p/o, but if he cannot find placement, will go to his sons house. It is a walkout basement and bathroom and bedroom on one level. Plan of Care Rehabilitation Potential Good Physical Therapy Goals During our one Pre-Op PT session, we will: ALL GOALS MET 1. Complete evaluation with measurements of pre-op knee AROM, strength, edema at mid patella and gait assessment. 2. Educate client in post-op HEP, he will demonstrate IND and proper execution with emphasis on HOLD duration, reps and alignment. 3. Education in proper use of WW and how to A/D flight of stairs 4. Educate in Home modifications, lifestyle accommodations, physical activity, pain control, Wound Care, Fall prevention Coordination/Communication With Referral Source Treatment Plan/Direct Interventions Gait Training,Ice/Cold/ Vasopneumatic,Neuromuscular Re -ed,Self-Care/Home Management, Therapeutic Activities, Therapeutic Exercises Patient Will Be Discharged From Therapy Completion of LTG(s),Skills Plateau,Independent w/HEP, Independently Progressing Evaluation Billing Untimed Code Treatment Minutes 24 Complexity Moderate Certification Information Initial Certification Date 03/12/23 Ending Certification Date 06/06/23 Provider Signature Shows Agreement With POC & Medical Necessity Physician Signature & Date Requested Please Sign/Date Here Physician Comment/Change : Physician NPI Number #
--- NOTE | 2023-06-06 11:10 | PT.OPDNX ---
PT [facility] Daily Note PT [facility] Daily Note Start: 03/12/23 07:10 Freq: Status: Active Protocol: Document 06/06/23 07:41 AMS (Rec: 06/06/23 11:10 AMS [id number]) E-signed By Jennifer Bennett, PT PT OP Daily Progress Note Visit Information Note Type Daily Note,Recert/Progress Note Visit Number [id number] Insurance Information Recert Due Date 06/06/23 Insurance Name Medicare B Medical Diagnosis Rt TKA (DOS 03/18/23) Treating Diagnosis Chronic Rt knee pain secondary OA Prior Cortisone injections no longer beneficial Referring MD Dr Kasi Clement Subjective Subjective Pt states he can walk quite a ways with his cane, about 300 ft, which he is happy with . Prior to surgery, he avoided walking at all, so this is a big improvement. He has been practicing walking without his cane downstairs, which goes well. No trouble with stairs. No pain at night or much during the day. He would like to keep working in physical therapy on his balance. Pain Comments 10/04 Precautions Treatment Precautions/Contraindications Cardiac concerns/stent placement Prior Surgical Hernia Repair Prior Smoker OA Hypertension Allergies Weight Bearing Status Weight Bear as Tolerated Home Exercise Home Exercise Comments Access Code: [email or web address] URL: [email or web address] Date: 05/28/2023 Prepared by: Jennifer Bennett Exercises - Seated Knee Extension Stretch with Chair - 1 x daily - 7 x weekly - 3 sets - 10 reps - 10-15 min hold - Active Straight Leg Raise with Quad Set - 1 x daily - 7 x weekly - 3 sets - 10 reps - Supine Bridge - 1 x daily - 4 x weekly - 3 sets - 10 reps - Sit to Stand Without Arm Support - 1 x daily - 4 x weekly - 2-3 sets - 10 reps - Mini Lunge with Counter Support - 1 x daily - 4 x weekly - 2-3 sets - 10 reps Balance (do in corner for safety): Single leg stance with chair in front - 3 rounds - 30 sec - daily Tandem stance with chair in front - 3 rounds - 30 sec - daily Objective Other/Pertinent Objective -Gait: Ambulates w/ step- through pattern and cane in left hand, non-antalgic, slow nico/decreased step length bilaterally. Without SPC: normalized gait, non-antalgic -knee AROM: R 0-0-123 deg ( actively), L 0-2-130 deg. -Strength: SLR: very mild quad lag bilaterally -MMT Hip flexion: L 5/5 R 4+/5 Knee extension: L 5/5 R 4+/5 Knee flexion: L 5/5 R 4+/5 -Palpation: hypertonicity and tenderness R quad and distal hamstrings. -Observation: no obvious signs or symptoms of infection R knee, good healing, swelling well-controlled -Stairs: utilizes correct sequencing and bilateral railings for safety/reciprocal pattern Functional Test Performed & Score SLS 3 seconds Patient Instructed in Risks/Benefits Yes Therapeutic Exercise Therapeutic Exercise Minutes (minutes) 35 Therapeutic Exercise: To Restore Pt educated in the following Functional Status exercises to improve range of motion, tissue tolerance, and/ or strength with verbal/ tactile cues as necessary: NuStep L1 x 5 minutes Sit to stand 20 surface 2 x 10 reps SL leg press on right, 100 lbs , x 12 reps, x 10 reps SL hamstring curl, 3 plates, 2 x 12 reps Step ups 8 x 10 reps R, one railing Discussed pt progress, future visits, and reviewed/updated HEP to include balance work; discussed [employer] equipment and membership Neuromuscular Re-Ed Neuromuscular Reeducation Minutes ( 8 minutes) Neuromuscular Reeducation Comments Pt instructed in the following to improve dynamic balance with gait belt/CGA for safety: -Tandem stance x 30 seconds B, no UE support (by counter for safety) -Single leg stance x 30 sec holds total each side; pt able to achieve ~5 sec B -Ambulation without single point cane for gait analysis; pt demonstrates normalized gait without postural sway but fatigues quickly -Navigation of 6 hurdles for improved dynamic balance, obstacle navigation, and confidence; cues for left LE lead for right knee flexion Treatment Minutes Timed Code Treatment Minutes 43 Total Treatment Time 43 Billing Units Gait Training/Stairs Units 1 Therapeutic Exercise Units 2 Assessment/Impression Assessment/Impression Fei is 11 weeks s/p right TKA. He has met all physical therapy goals, other than his lower extremity strength goal for improved quality of gait without his SPC. Minor pain with sit to stand exercise this visit, but 2/10 and no longer using OTC pain meds. Progressed to higher level dynamic balance activities this visit, which patient was able to complete without SPC and CGA for safety; no LOB. Discussed option for obtaining [address] [place] [address] membership for access to weight-training equipment, which pt is interested in. Will reassess LEFS next visit and readiness for potential discharge. Pt will benefit from continued skilled PT services 1x/week, progressing as able. Plan of Care Physical Therapy Goals Short-term goals to be completed in 4 weeks: 1.Pt will display improved R LE strength as evidenced by ability to perform >12 SLR of good quality to improve quality of gait and progress to ambulation with single point cane. MET 2.Pt will report waking <3 times per night due to R knee pain to improve quality of sleep. MET Long-term goals to be completed in 10 weeks: 1.Pt will be independent and compliant with HEP. MET 2. Pt will display improved R knee passive ROM > 0-0-120 deg to improve quality of gait. MET 3.Pt will display improved R hip flex, hip ABD, quad and hamstring strength >4/5 to improve quality of gait without assistive device. PROGRESSING 4.Pt will display improved mechanics going up<>down >12 stairs with a reciprocal pattern using 1 railing to safely reach his bedroom. MET 5.Pt report >24 point improvement in LEFS questionnaire to significantly improve najma to daily activities. PROGRESSING Daily Plan of Care Continue per POC Daily Plan of Care Comments Plan: ROM/MMT, Goal check, LEFS, gait without cane, D/C? Recertification Information Initial Certification Date 06/06/23 Recertification Start Date 06/06/23 Recertification Due Date 08/30/23 Reasons to Continue Skilled Therapy Patient is a 82 year old male that presents to physical therapy following right total knee replacement on 03/18/23.? Patient reports significant improvement in pain, range of motion, and functional mobility with skilled physical therapy services.?Patient has shown improvement in physical therapy, demonstrating decreased pain, increased range of motion, increased strength, improved balance, and increased tolerance to activity and load.?Patient continues to present with mild pain, decreased strength, and decreased dynamic balance. Although pt is able to ambulate safely without use of single point cane for short distances due to fatigue, he has residual dynamic balance difficulties. ?Patient would benefit from continued skilled PT services to address these issues and to maximize function. Rehabilitation Potential Good Continued Plan of Care and Interventions Therapeutic exercise Therapeutic activities Neuromuscular Re-education Manual Therapy Provider Signature Shows Agreement With POC & Medical Necessity
== END 2023-06-18 14:37 | disposition home or self-care (01) ==
PROVIDERS: PCP Family Medicine; Visit Provider Orthopaedic Surgery
DX: M17.11 Unilateral primary osteoarthritis, right knee (principal); Z96.651 Presence of right artificial knee joint; M25.561 Pain in right knee; G89.29 Other chronic pain; Z51.89 Encounter for other specified aftercare
CPT/HCPCS: 97110; 97112; 97116; 97140; 97162; 97164

== ENCOUNTER 2023-08-15 07:50 | Outpatient (CLI) | payer OTHER, SELFPAY | END 2023-08-15 07:51 | disposition home or self-care (01) | LOC: NFLDREF 08-18 00:34 | PROVIDERS: PCP Family Medicine; Referring Provider Family Medicine; Visit Provider Family Medicine | DX: E78.5 Hyperlipidemia, unspecified (principal); R97.20 Elevated prostate specific antigen [PSA] | CPT/HCPCS: 80053; 80061; 84153 ==

== ENCOUNTER 2024-07-29 11:15 | Outpatient (RCR) | payer OTHER, SELFPAY ==
--- NOTE | 2024-05-07 16:34 | PT.OPEX ---
PT [place] Outpatient Eval PT [facility] Outpatient Eval Start: 05/07/24 13:43 Freq: Status: Active Protocol: Document 05/07/24 13:43 SOPHIA (Rec: 05/07/24 16:26 SOPHIA [id number]) E-signed By Sigrid Bello DPT Physical Therapy Outpatient Evaluation Insurance Information Recert Due Date 08/05/24 Insurance Name Medicare B,[employer] Medical Diagnosis impaired balance Treating Diagnosis general weakness, impaired balance, unsteady gait, hx of fall Subjective Subjective Patient reports noticing some balance issues, unsteady gait. He reports feeling ill over the Day weekend and was more unsteady at that time. States he lost his balance and had to grab onto a support but then slowly lowered to the floor. He scraped his elbow, denies any other injuries with the fall. He was able to crawl over to furniture to get himself back up. Lives with spouse. He denies any other recent falls. He walks regularly - about 5 days a week walking outside for about 15-20 min. He does not use an AD. Reports having a cane and walking sticks that he uses more during the winter months. He is independent with activities at home, out in the yard, rider mower. Patient continues to drive, out of the home regularly, out to the store and around the community. Overall feels he is doing well but has been feeling a little weak and unsteady lately. States he requested referred to PT for some exercises to improve his strength and balance. 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 Patient denies pain. 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 He reports one fall over Day weekend, stating he was ill, not feeling well and then more unsteady when up walking. He lost his balance and had to grab onto a support but still ended up slowly lowering himself to the floor. Patient with general core/hip/glut/LE weakness. He fatigues quickly with exercises, activities. Reports a good workout with PT exercises/ activities this session. Patient is challenged with standing static/dynamic activities including rhomberg stance EO/EC, modified sharpened rhomberg stance positions R/L with patient needing min-CGA for balance/ safety. TUG score of 12 seconds and 12 seconds on 2 performances this session. Patient unsteady with turning while performing TUG test. Tinetti Assessment score of 9/ 16 balance, 8/12 gait, total 17/28. Patient score places him in high risk category. Reviewed balance/fall risk and activities with patient. He reports one recent fall, denies any other recent falls. Feels he is doing ok without AD but is planning to use his cane/walking sticks again this winter. Patient with deviating path with amb in the hallway. No LOB this session but patient is unsteady at times. Able to initiate seated exercises for HEP. Patient would benefit from skilled PT for general strengthening, balance/ proprioception training, gait training, and establishment of HEP. Plan of Care Rehabilitation Potential Good Physical Therapy Goals 1. Improve core/hip/glut/LE strength and trunk stability over the next 10-12 weeks for improved functional mobility, improved balance, and improved gait with decreased risk of falls. 2. Improve Tinetti score to 20/28 and TUG score to 10 seconds or less over the next 10-12 weeks for improved safety with ambulation/daily activities and decreased risk of falls with/without an AD as needed. 3. Improve balance, coordination over the next 10- 12 weeks for improved gait and safety for ongoing amb without an AD as able/safe to do so indoors/outdoors and for use of cane/walking sticks as needed. 4. Patient will not have any falls over the next 10-12 weeks with progression of PT activities and daily/home activities. 5. Patient will be I with HEP within 12 weeks for progression toward above goals, ongoing self improvements with strength/coordination/balance/ gait/safety, for amb without an AD as safe/able for indoor/ outdoor activities and for use of cane/walking sticks as needed. Coordination/Communication With Referral Source Treatment Plan/Direct Interventions Gait Training,Neuromuscular Re -ed,Therapeutic Exercises Patient Will Be Discharged From Therapy Completion of LTG(s),Skills Plateau,Independent w/HEP, Independently Progressing Evaluation Billing Untimed Code Treatment Minutes 26 Complexity Moderate Certification Information Initial Certification Date 05/07/24 Ending Certification Date 08/05/24 Provider Signature Required Yes Provider Signature Shows Agreement With POC & Medical Necessity Physician NPI Number Write NPI# Here Physician Comment/Change : Physician Signature & Date Requested Please Sign/Date Here
== END 2024-11-26 23:59 | disposition home or self-care (01) ==
PROVIDERS: PCP Family Medicine; Visit Provider Family Medicine
DX: R26.89 Other abnormalities of gait and mobility (principal); R26.81 Unsteadiness on feet; M62.81 Muscle weakness (generalized); Z51.89 Encounter for other specified aftercare
CPT/HCPCS: 97110; 97112; 97162

== ENCOUNTER 2024-08-19 08:21 | Outpatient (CLI) | payer OTHER, SELFPAY | END 2024-08-19 08:22 | disposition home or self-care (01) | LOC: NFLDREF 08-20 06:32 | PROVIDERS: PCP Family Medicine; Referring Provider Family Medicine; Visit Provider Family Medicine | DX: E78.5 Hyperlipidemia, unspecified (principal); Z12.5 Encounter for screening for malignant neoplasm of prostate | CPT/HCPCS: 80053; 80061; G0103 ==

== ENCOUNTER 2025-05-13 10:48 | Emergency (ER) | payer OTHER, SELFPAY ==
[2025-05-13] VITALS (11 sets, daily range): BP systolic 117–189; BP diastolic 63–107; PULSE 66–92; RESP 12–22; TEMP 36.9; O2SAT 94–97; BMI 31.6
--- OUTSIDE RECORDS SUMMARY | 2025-05-13 10:50 | XMS_ITS | Clinical Summary ---
Author Organization [facility] Address [address] [place] [id number] Care Team Providers Care Leather Dresser Name Role Phone Bang Esposito MD Primary Care Provider [phone] Myron Michelle MD Unavailable [phone] Em Stone MD Unavailable [phone] Allergies Active Allergy Reactions Criticality Noted Date Comments Bacitracin Itching Low 05/15/2016 Ciprofloxacin Arthralgia 09/18/2015 Dexamethasone Edema 07/30/2013 severe Nitrofurazone Rash 11/13/2005 Furacin HC Neomycin-Polymyxin B-Dexameth Edema 2012 Neomycin Edema 07/30/2013 severe Medications ascorbic acid (VITAMIN C) 1,000 mg tablet Take 500 mg by mouth once daily. 0 11/28/2011 Active simvastatin (ZOCOR) 40 mg tabletIndication s:CAD (coronary artery disease) Take 1 tablet by mouth at bedtime. 90 tablet 2 06/09/2012 Active carboxymethylce- glycern-poly80 (REFRESH OPTIVE ADVANCED) 0.5-1-0.5 % ophthalmic solution Place into the eye(s). 0 05/21/2019 Active aspirin (ECOTRIN) 81 mg enteric coated tablet Take 1 Tablet (81 mg) by mouth once daily with a meal. 90 Tablet 3 02/08/2022 Active lisinopriL (PRINIVIL; ZESTRIL) 10 mg tablet Take 10 mg by mouth once daily. 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 Resolved Problems Problem Noted Date Diagnosed Date Resolved Date Contact allergy eyelid 01/12/201303/12 Senile ectropion 01/01/2011 08/01/2014 Regular astigmatism 11/13/2005 11/06/19 11 Family History Medical History Relation Name Comments Diabetes Brother Hypertension Father Relation Name Status Comments Brother Father Diabetic Mother Social History Tobacco Use Types Packs/Day Years Used Date Smoking Tobacco: Former Cigarettes 1975 Smokeless Tobacco: Never Comments:quit over 40 years ago Alcohol Use Standard Drinks/Week Comments Yes 3.3 (1 standard drink = 0.6 oz p ure alcohol) 5 drink per week Financial Resource Strain Answer Date R ecorded Difficulty of Paying Living Expenses Not on file 08/25/2021 Difficulty of Paying Living Expenses Not on file 08/25/2021 Sex and Gender Information Value Date Recorded Sex Assigned at Not on file 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81 03/01/2024 8:55 AM CDT Plan of Treatment Health Maintenance Due Date Last Done Comments Tetanus booster 1949 Depression screening for age 12+ 1950 Pneumococcal series for age 50+ (1 of 2 - PCV) 1957 Zoster (shingles) series for age 50+ (1 of 2) 1988 Medicare Wellness for age 65+ 11/24/2003 RSV vaccine for adults or (1 - 1-dose 75+ series) 2013 BMI (ht and wt on same day) for age 18+ 03/01/2025 03/01/2024, 02/08/2022, 12/08/2020, Additional history exists COVID-19 vaccine series (2024- season) 2025 06/24/2023, 06/11/2022, 12/11/2021, Additional history exists Influenza Vaccine (#1) 2025 Hepatitis B series for 19+ Aged Out N o longer eligible based on patient's age to complete this topic Medical Devices Implanted Type Area Flush Tester Device Identifier Shelf Expiration Date Model / Serial / Lot Lens Iol 24.0 Wf [id number]. [id number] - [id number] Implanted:Qty: 1 on 08/02/2013 by Torres Allred MD at [employer] Left: Eye [employer] 12/01/2017 [id number]. [id number] / [id number] / Insurance [employer] [place] [id number] Advance Directives * Full Code (Latest Code Status on File) Date Activated Date Inactivated Comments 07/18/2014 1:21 PM 07/19/2014 2:13 AM * Full Code Date Activated Date Inactivated Comments 08/02/2013 6:42 AM 08/02/2013 11:13 AM * Full Code Date Activated Date Inactivated Comments 12/28/2012 6:09 AM 12/28/2012 11:21 AM * Full Code Date Activated Date Inactivated Comments 12/12/2011 6:07 AM 12/12/2011 6:00 PM Care Teams Leather Dresser Relationship Specialty Start Date End Date Bang Esposito MD PCP - General Family Practice 08/10/13 Myron Michelle MD Consulting Physician Cardiovascular Disease 09/14/13 Em Stone MD Consulting Physician Cardiovascular Disease 02/07/22
--- NOTE | 2025-05-13 11:27 | ED.NECK ---
HPI - Neck Pain/Injury General Time Seen by Provider: 11:27 Date Seen: 05/13/25 Chief Complaint: Neck Injury/Pain Stated Complaint: stiff neck Time Seen by Provider: 05/13/25 11:00 Source: patient and RN notes reviewed Mode of arrival: ambulatory Limitations: no limitations History of Present Illness HPI Narrative: This 84yo male is coming in accompanied by his son with complaint of left neck pain and stiffness. This started upon awakening on Friday morning. He did go to the chiropractor on Friday, had an adjustment and felt better until this am. This morning pain is worse, hurts to turn his neck at all; noted pain in neck with going over a bump on the way in. He is having no radiating pain into his arms but movement of his arms will localize pain into his neck. He took 2 Tylenol last night and the night before, did bring 2 Tylenol in his pocket. He has had no fevers or chills. No chest pain, no sense of palpitations. He has a rice pack which she has used some heat. MD complaint: neck pain Related Data Home Medications ?Medication ?Instructions ?Recorded ?Confirmed ascorbic acid (vitamin C) 500 mg 500 mg PO .qd 05/14/22 09/07/24 capsule cholecalciferol (vitamin D3) 25 1,000 unit PO DAILY 05/14/22 09/07/24 mcg (1,000 unit) tablet aspirin 81 mg tablet,delayed 81 mg PO QDAY 04/30/23 09/07/24 release acetaminophen 500 mg tablet 500 mg PO Q6H PRN 08/19/23 09/07/24 cetirizine 10 mg tablet (Zyrtec) 10 mg PO QDAY PRN 09/07/24 09/07/24 Previous Rx's ?Medication ?Instructions ?Recorded lisinopril 10 mg tablet 10 mg PO DAILY #90 tabs 09/07/24 simvastatin 40 mg tablet 40 mg PO .Bedtime #90 tabs 09/07/24 triamcinolone acetonide 0.1 % 1 applic topical BID PRN itching 09/07/24 topical cream #30 grams tizanidine 2 mg tablet 2 mg PO Q8H PRN muscle spasticity 05/13/25 #15 tabs Allergies Allergy/AdvReac Type Severity Reaction Status Date / Time dexamethasone Allergy Severe swelling Verified 05/13/25 13:01 neomycin Allergy Severe Swelling Verified 05/13/25 13:01 polymyxin B Allergy Severe swelling Verified 05/13/25 13:01 shellfish derived Allergy Verified 05/13/25 13:01 Review of Systems Status of ROS: Reports: 6 or more systems reviewed and unremarkable except as noted in History and below [facility] Medical History Urethritis ?N34.2 - Other urethritis (ICD-10) Murmur, cardiac ?R01.1 - Cardiac murmur, unspecified (ICD-10) Tubular adenoma of colon ?D12.6 - Benign neoplasm of colon, unspecified (ICD-10) Hyperlipidemia (05/25/13) ?E78.5 - Hyperlipidemia, unspecified (ICD-10) Coronary artery disease (05/25/13) ?I25.10 - Atherosclerotic heart disease of [place] coronary artery without angina pectoris (ICD-10) Hypertension (05/25/13) ?I10 - Essential (primary) hypertension (ICD-10) Tobacco use (05/25/13) ?Z72.0 - Tobacco use (ICD-10) Rash of hands (05/25/13) ?R21 - Rash and other nonspecific skin eruption (ICD-10) Asthma (05/25/13) ?J45.909 - Unspecified asthma, uncomplicated (ICD-10) Surgical History History of phacoemulsification of cataract of right eye with intraocular lens implantation (12/16/18) ?Z98.41 - Cataract extraction status, right eye (ICD-10) ?Z96.1 - Presence of intraocular lens (ICD-10) History of YAG laser capsulotomy of lens of right eye (10/11/20) ?Z98.41 - Cataract extraction status, right eye (ICD-10) 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) ?Z96.651 - Presence of right artificial knee joint (ICD-10) H/O heart artery stent ?Z95.5 - Presence of coronary angioplasty implant and graft (ICD-10) History of hernia repair (05/25/13) ?Z98.890 - Other specified postprocedural states (ICD-10) ?Z87.19 - Personal history of other diseases of the digestive system (ICD-10) History of hemorrhoidectomy (05/25/13) ?Z98.890 - Other specified postprocedural states (ICD-10) History of eyelid surgery (12/04/16) ?Z98.890 - Other specified postprocedural states (ICD-10) Family History Brother Diabetes Sister High blood pressure Father High blood pressure Social History Narrative: SOCIAL HISTORY: He is and retired. He worked various jobs at [employer] in [place]. He continues to live in [place]. Two children in the area and a number of grandchildren. HABITS: He is sexually active. Regular exercise - walking 4-6 x/wk. He is watching somebody's dog and this is getting him to walk more than he would otherwise. 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 No tobacco use or recreational drug use. Alcohol use is about 2 drinks per week (lower). FAMILY HISTORY: Unchanged. Both parents . Father of pneumonia and mother of multiple issues and arthritis. Brother with diabetes. What is your current living situation?: I presently have a place to live Problems where you live: no known problems In the past 12 months, utilities in danger of being shut off: no In past 12 months, lack of transportation kept you from medical appts, meetings, work, or getting things needed for daily living: no In the past 12 mos, have been you worried that your food would run out before you had money to buy more?: never true In the past 12 mos, the food you bought just didn't last and you didn't have money to buy more?: never true Highest level of school completed/degree received: high school graduate Smoking Status: Former smoker What tobacco products do you use: cigarettes Smoking packs per day: 1 Smoking cigarettes per day: 20.0 Years smoked: 2 Smoking pack-years: 2.00 Smoking quit date/years: >15 years ago Do you use any of these nicotine containing products: None Second hand tobacco smoke exposure: No How often do you have a drink containing alcohol: monthly or less Alcohol type: beer and hard liquor How many standard drinks containing alcohol do you have on a typical day: 1 or 2 How often do you have six or more drinks on one occasion: Never AUDIT-C Alcohol total score: 1 Non-prescribed substance use: denies use Caffeine: Yes (coffee, 2 cups/morning) How often does anyone, including family, friends and others, physically hurt you: never How often does anyone, including family, friends and others, insult or talk down to you: never How often does anyone, including family, friends and others, threaten you with harm: never How often does anyone, including family, friends and others, scream or curse at you: never service: Yes Exam Const: Vital Signs, click to edit/add: Vital Signs - 24 hr 05/13/25 11:16 05/13/25 12:17 05/13/25 12:30 Temperature 98.4 F Pulse Rate 66 67 Pulse Rate [Right Pulse Oximeter] 73 Respiratory Rate 18 14 18 Blood Pressure Blood Pressure [Ri ght Upper Arm] 189/87 H Pulse Oximetry 96 96 95 Oxygen Delivery Me thod Room Air 05/13/25 12:32 05/13/25 13:00 05/13/25 13:04 Temperature Pulse Rate 69 92 76 Pulse Rate [Right Pulse Oximeter] Respiratory Rate 18 17 17 Blood Pressure 147/107 H 172/79 H Blood Pressure [Ri ght Upper Arm] Pulse Oximetry 94 95 97 Oxygen Delivery Me thod 05/13/25 13:15 05/13/25 13:30 05/13/25 13:32 Temperature Pulse Rate 77 66 67 Pulse Rate [Right Pulse Oximeter] Respiratory Rate 18 22 17 Blood Pressure 117/63 Blood Pressure [Ri ght Upper Arm] Pulse Oximetry 96 96 96 Oxygen Delivery Me thod 05/13/25 13:45 05/13/25 14:00 Temperature Pulse Rate 71 85 Pulse Rate [Right Pulse Oximeter] Respiratory Rate 16 12 Blood Pressure Blood Pressure [Ri ght Upper Arm] Pulse Oximetry 96 96 Oxygen Delivery Me thod This 84-year-old male is very pleasant, seen in [facility]. He is sitting up on the bed, alert, interactive, no apparent distress. He is holding his neck stiffly really does not want to move it side to side or turn his head at all. Flexion extension are limited as well. He has no midline tenderness of his neck. His pain is on the left side, seems to be more in the paraspinous muscles, some maybe in the sternocleidomastoid. There is no neck masses, no adenopathy, no thyromegaly masses or nodules. He has no tenderness over his clavicles, no supraclavicular masses. Lungs are clear, good air entry, no wheezing or crackles, no tachypnea, no accessory muscle use. Heart rate sounds irregular but not fast, maybe here faint systolic murmur, normal S1-S2. He has normal symmetrical peripheral pulses in the radial pulses. Normal cap refill. Strength is 5 5 and symmetric throughout both of his upper extremities, normal light touch sensation. Documenting provider has reviewed patient's vital signs: yes Course Reevaluation(s) Time of Reevaluation #1: 13:53 Reevaluation #1: Have reviewed with patient is EKG and his CT findings. 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 He does have some stenosis about 50% of bilateral cervical ICAs. Hopefully at age 84, this will not become clinically significant for him. Will leave this to his primary to see if they want to follow. He does not have any vascular injury from the adjustment. His CK is normal. This likely represents torticollis. He notes his neck actually is feeling better now, he demonstrate some range of motion which is increased. We discussed using scheduled Tylenol, will send in low-dose Zanaflex for him. Did review the risks benefits and side effects of this medicine. Consultations Consultation #1: Did speak with Dr. Stover from [facility] and sent EKG to him. He feels that this is rate related LBBB. He doesn't see any AFIB but believes that this patient should have Zio patch and outpatient cardiology followup. Time: 13:34 Vital Signs Vital signs: Initial Vital Signs Temperature 98.4 F 05/13/25 11:16 Temperature Source Temporal Artery Scan 05/13/25 11:16 Pulse Rate 73 05/13/25 11:16 Respiratory Rate 18 05/13/25 11:16 Blood Pressure 189/87 H 05/13/25 11:16 Blood Pressure Mean 121 H 05/13/25 11:16 Blood Pressure Position Sitting 05/13/25 11:16 Pulse Oximetry 96 05/13/25 11:16 Oxygen Delivery Method Room Air 05/13/25 11:16 Vital Signs Temperature 98.4 F 05/13/25 11:16 Pulse Rate 73 05/13/25 11:16 Respiratory Rate 18 05/13/25 11:16 Blood Pressure 189/87 H 05/13/25 11:16 Pulse Oximetry 96 05/13/25 11:16 Oxygen Delivery Method Room Air 05/13/25 11:16 Temperature 98.4 F 05/13/25 11:16 Pulse Rate 85 05/13/25 14:00 Respiratory Rate 12 05/13/25 14:00 Blood Pressure 117/63 05/13/25 13:32 Pulse Oximetry 96 05/13/25 14:00 Oxygen Delivery Method Room Air 05/13/25 11:16 MDM - Neck Pain/Injury Medical Records Attestation: I reviewed the patient's medical records. Medical records narrative: ? Allergic rhinitis, cause unspecified ? ? Asthma ? ? CAD (coronary artery disease) ? ? stent x1 12/12/11 ? Cataract ? ? Diverticulosis ? ? Eczema ? ? hand ? ED (erectile dysfunction) ? ? Headache(784.0) ? ? Hyperlipidemia ? ? Pain in joint, site unspecified ? ? Rash of hands ? ? Senile ectropion ? ? Simple obesity ? ? Tobacco use ? ? Unspecified asthma(493.90) ? ? Unspecified essential hypertension From [facility]. Last cardiology note 03/01/2024: Reason for referral/Chief complaint: Follow-up coronary artery disease ? HPI: Marin Ponce is a 83 y.o. male with a history of coronary artery disease with percutaneous coronary intervention in 2011. He has had no recurrence of the chest and back pain he had prior to intervention in 2011. He was feeling weak and checking blood pressures at home and getting systolic blood pressure around 100. His lisinopril was decreased to 10 mg and he feels better. Home systolic blood pressures are usually in the 130s. He used to take potassium supplements to prevent leg cramps but stopped in November 2018 when his potassium was elevated on outside lab draws. He is active with walking around his neighborhood and doing yard work. He has stable exertional dyspnea but no chest pain. He has some mild ankle swelling that is worse at the end of the day and resolves when he wakes up. PRIOR CARDIOVASCULAR TESTIN12/12/2011 coronary angiogram: DIAGNOSTIC - CORONARY: Right dominant coronary artery system. The left main artery was normal in appearance and free of obstructive disease. The LAD has minimal disease. The circumflex artery was normal in appearance and free of obstructive disease. 80% stenosis in the distal RCA Successful angioplasty and stenting (drug eluting) of the distal right coronary artery Nuclear stress 09/30/2016: ?The supine stress images show an extensive area of moderaely reduced uptake in the inferior wall which appears fixed on resting images. However, on prone stress images it appears to nomalize indicative of likely diaphragmatic attenuation artifact. The perfusion?images were probably normal with diaphragmatic attenuation artifact, which may result in a decreased sensitivity to exclude coronary?artery disease. Normal left ventricular size and systolic function with a calculated LVEF of 69%.?Normal left ventricular wall motion.?Stress ECG is negative for myocardial ischemia.?Exercise produced shortness of breath.?Poor exercise tolerance, achieving 4.6 METs and 95.1% of max predicted heart rate.?Frequent PVCs and ?Bigeminy, Couplets and Triplets. Electrocardiogram 04/2019: sinus bradycardia HR 59. I have personally reviewed images/tracings. CONSULTATION ASSESSMENT AND PLAN: 1. Coronary artery disease status post percutaneous coronary intervention 2011 He is having no angina. Continue aspirin and statin. Lipids controlled. Not on beta-justin, has history of resting sinus bradycardia. ? 2. Hypertension Well controlled. Continue lisinopril 10 mg. Outside BMP reviewed. ? Em Stone MD [facility] Lab Data Attestation: I reviewed the patient's lab results. Labs: Lab Results 05/13/25 05/13/25 Range/Units 11:40 12:13 WBC 12.51 H (4.50-11.00) K/uL RBC 4.64 (4.30-5.90) m/uL Hgb 13.8 (13.5-17.5) gm/dL Hct 41.5 (37.0-53.0) % MCV 89 (80-100) fL MCH 30 (26-34) pg MCHC 33 (32-36) gm/dL RDW Coeff of Maggie 13.3 (11.5-15.5) % Plt Count 276 (140-440) K/uL Neut % (Auto) 82.3 H (42.0-72.0) % Lymph % (Auto) 9.4 L (20-44) % [place] % (Auto) 7.5 (0.0-11.0) % Eos % (Auto) 0.5 (0.0-7.0) % Baso % (Auto) 0.2 (0.0-3.0) % Neut # (Auto) 10.30 H (1.7-7.0) K/uL Lymph # (Auto) 1.20 (0.90-2.90) K/uL [place] # (Auto) 0.90 (0.00-0.90) K/UL Eos # (Auto) 0.10 (0.00-0.50) K/uL Baso # (Auto) 0.00 (0.00-0.30) K/uL Abs Immat Gran (auto) 0.00 (0.00-0.30) K/uL Imm/Tot Granulo (auto) 0.1 % Sodium 134 L (135-149) mmol/L Potassium 4.5 (3.6-5.1) mmol/L Chloride 102 (96-114) mmol/L Carbon Dioxide 24 (20-32) mmol/L Anion Gap 8 (7-15) mEq/L BUN 12 (7-30) mg/dL Creatinine 0.9 (0.5-1.5) mg/dL Estimated Creat Clear 65.10 Estimated GFR 83 ml/min Glucose 102 (60-115) mg/dL Calcium 9.0 (8.4-10.6) mg/dL Total Bilirubin 1.1 (0.1-1.5) mg/dL AST 29 (12-35) U/L ALT 17 (4-50) U/L Alkaline Phosphatase 81 (40-150) U/L Total Creatine Kinase 63 (54-186) U/L Troponin I 0.02 (0.01-0.04) ng/mL Total Protein 7.5 (6.0-8.3) g/dL Albumin 4.0 (3.3-5.0) g/dL Lab Acknowledgement Test Added POC Creatinine 1.0 (0.6-1.3) mg/dl Imaging Data CT cervical spine: Attestation: I have reviewed the pertinent imaging results. Radiologist's impression: Patient: MARIN PONCE Facility:?[facility] Patient ID:?[id number] Site Patient ID:?[id number]. Site :?[id number] Study:?CT-Spine Cervical -05/13/2025 12:59:21 PM Ordering Physician:Jennifer Gilbert Final Report: INDICATION: Neck pain. TECHNIQUE: CT cervical spine without contrast. COMPARISON: None. FINDINGS: Vertebrae: Alignment is normal. There are no fractures or suspicious bony lesions. Discs and facet joints: There are advanced degenerative disc changes most severe at C5-6 and C6-7. There are multilevel degenerative changes in the facets. Extraspinal findings: Paraspinous soft tissues are unremarkable. IMPRESSION: 1. No sign of acute injury. 2. Relatively severe multilevel degenerative spondylosis. Please note that all CT scans at this facility use dose modulation, iterative reconstruction, and/or weight-based dosing when appropriate to reduce radiation dose to as low as reasonably achievable. Dictated by Jae Samaniego MD @ 05/13/2025 1:25:14 PM (Electronic Signature) CT angio neck: Attestation: I have reviewed the pertinent imaging results. Radiologist's impression: Patient: MARIN PONCE Facility:?[facility] Patient ID:?[id number] Site Patient ID:?[id number]. Site :?[id number] Study:?CT-Neck Angio Angio 95CC ISOVUE 370 NON ACUTE-05/13/2025 1:00:43 PM Ordering Physician:?Andrew Gilbert Preliminary Report: INDICATION: NECK PAIN, HAD ADJUSTMENT, NO TRAUMA. (Sic) COMPARISON: None available. PRELIMINARY FINDINGS: 1. CTA NECK: Bilateral proximal cervical ICA focal stenosis associated with calcified and noncalcified atherosclerotic plaque. On the right, calcification is associated with the plaque (series 6; image 246). No calcification is associated with focal narrowing of the proximal left ICA due to what is considered to be circumferential noncalcified atherosclerotic plaque. There is no luminal irregularity to indicate an intimal injury. No dissection flap or intraluminal thrombus. Stenosis of the bilateral cervical ICAs is hemodynamically significant, measuring on the order of 50 percent. 2. CTA of the included head: Negative. No large vessel occlusion, flow limiting stenosis or aneurysm larger than 3mm. THIS IS A PRELIMINARY REPORT. THE FINAL REPORT WILL BE ISSUED BY THE NEURORADIOLOGY SUBSPECIALITY SECTION OF THE DEPARTMENT. Dictated by Tyrese Burleson MD @ 05/13/2025 1:37:58 PM Read by:?Tyrese Burleson MD @05/13/2025 1:38:00 PM Discharge Plan Discharge Clinical Impression: Acute torticollis, Left bundle branch block Clinical Impression: (Ruled Out): Encounter for annual physical exam Patient Disposition: Home, Self-Care Condition: Stable Instructions: Heart Block (ED), Spasmodic Torticollis (ED) Additional Instructions: Appointment with cardiology at the [facility] on June 23 at 10:30AM. Complete the Zio patch, we are doing this based on the EKG showing a change in your underlying rhythm of your heart. The Zio patch will make sure that there is nothing like atrial fibrillation which would require a blood thinner. You wear this for 2 weeks, follow Radiology directions and bring back when this is complete. Schedule a follow-up with your primary in clinic within the next week. You do have some underlying degenerative changes/arthritis in your neck. The internal carotids do have some plaque buildup but it is not over 50%. It is unlikely that you will develops any symptoms from this in your life time but this can be further followed with your primary in clinic. This has nothing to do with your current neck symptoms. For the torticollis, use Tylenol 1000 mg 3 times a day until improving. Can use your right ice pack on your neck with he to help symptoms. Have written for a low-dose muscle relaxant to use as needed, follow prescription instructions. Muscle relaxants can potentially make you more sleepy, potentially increased risk of fall so please be careful when taking this. Activity Level: Activity as Tolerated Prescriptions: New tizanidine 2 mg tablet 2 mg PO Q8H PRN (Reason: muscle spasticity) Qty: 15 0RF No Action ascorbic acid (vitamin C) 500 mg capsule 500 mg PO .qd cholecalciferol (vitamin D3) 25 mcg (1,000 unit) tablet 1,000 unit PO DAILY cetirizine [Zyrtec] 10 mg tablet 10 mg PO QDAY PRN lisinopril 10 mg tablet 10 mg PO DAILY Qty: 90 3RF simvastatin 40 mg tablet 40 mg PO .Bedtime Qty: 90 3RF triamcinolone acetonide 0.1 % cream 1 applic topical BID PRN (Reason: itching) Qty: 30 1RF Rx Instructions: use for up to 2 weeks for itchy area on back. aspirin 81 mg tablet,delayed release (DR/EC) 81 mg PO QDAY acetaminophen 500 mg tablet 500 mg PO Q6H PRN Follow Up/Referrals: Bang Esposito MD [Primary Care Provider, Family Practice] Stand Alone Forms: [employer] Info Instructions
--- NOTE | 2025-05-13 11:44 | CRLHL7_ITS ---
For Patients: As a result of the Century Cures Act, medical imaging exams and procedure reports are released immediately into your electronic medical record. You may view this report before your referring provider. If you have questions, please contact your health care provider. INDICATION: Neck pain, adjustment. TECHNIQUE: CTA neck with contrast bolus tracking, 3D angiographic rendering using maximum intensity projection (MIP) and images permanently archived. FINDINGS: There is carotid atherosclerosis bilaterally. There is atherosclerotic plaque in the proximal right ICA resulting in a severe stenosis, 80% by NASCET. There is atherosclerotic plaque in the proximal left ICA resulting in a severe stenosis, 80% by NASCET. There is a moderate left vertebral artery origin stenosis. There is no significant right vertebral artery stenosis or dissection. Degenerative changes are noted in the cervical spine. IMPRESSION: Severe proximal right ICA stenosis, 80% by NASCET. Severe proximal left ICA stenosis, 80% by NASCET. Moderate left vertebral artery origin stenosis. No evidence for carotid or vertebral artery dissection. Please note that all CT scans at this facility use dose modulation, iterative reconstruction, and/or weight-based dosing when appropriate to reduce radiation dose to as low as reasonably achievable. Dictated by Hernandez Valentin MD @ 05/13/2025 5:39:37 PM (Electronically Signed)
--- NOTE | 2025-05-13 11:44 | CRLHL7_ITS ---
For Patients: As a result of the Century Cures Act, medical imaging exams and procedure reports are released immediately into your electronic medical record. You may view this report before your referring provider. If you have questions, please contact your health care provider. INDICATION: Neck pain. TECHNIQUE: CT cervical spine without contrast. COMPARISON: None. FINDINGS: Vertebrae: Alignment is normal. There are no fractures or suspicious bony lesions. Discs and facet joints: There are advanced degenerative disc changes most severe at C5-6 and C6-7. There are multilevel degenerative changes in the facets. Extraspinal findings: Paraspinous soft tissues are unremarkable. IMPRESSION: 1. No sign of acute injury. 2. Relatively severe multilevel degenerative spondylosis. Please note that all CT scans at this facility use dose modulation, iterative reconstruction, and/or weight-based dosing when appropriate to reduce radiation dose to as low as reasonably achievable. Dictated by Jae Samaniego MD @ 05/13/2025 1:25:14 PM (Electronically Signed)
[2025-05-13 12:15] LABS: Creatinine, Point-of-Care* 1.0 mg/dl (0.6-1.3)
[2025-05-13 12:18] LABS: Hematocrit* 41.5 % (37.0-53.0); Hemoglobin* 13.8 gm/dL (13.5-17.5); Immature Granulocytes Pct Auto 0.1 %; Mean Corpuscular HGB Conc 33 gm/dL (32-36); Mean Corpuscular Hemoglobin 30 pg (26-34); Mean Corpuscular Volume 89 fL (80-100); RDW Coefficient of Variation % 13.3 % (11.5-15.5); Red Blood Count* 4.64 m/uL (4.30-5.90); White Blood Count* 12.51 K/uL (4.50-11.00)
[2025-05-13 12:23] LABS: Immature Granulocytes Abs Auto 0.00 K/uL (0.00-0.30); Lymphocytes Absolute Auto 1.20 K/uL (0.90-2.90); Slide Review Reflex No
[2025-05-13 12:31] LABS: Albumin* 4.0 g/dL (3.3-5.0); Chloride* 102 mmol/L (96-114); Potassium* 4.5 mmol/L (3.6-5.1); Sodium* 134 mmol/L (135-149)
[2025-05-13 12:34] LABS: Alanine Aminotransferase* 17 U/L (4-50); Alkaline Phosphatase* 81 U/L (40-150); Anion Gap 8 mEq/L (7-15); Aspartate Amino Transferase* 29 U/L (12-35); Bilirubin Total* 1.1 mg/dL (0.1-1.5); Blood Urea Nitrogen* 12 mg/dL (7-30); Carbon Dioxide* 24 mmol/L (20-32); Creatine Kinase* 63 U/L (54-186); Creatinine* 0.9 mg/dL (0.5-1.5); Est. Creatinine Clearance* 65.10; Estimated Glomerular Filt Rate 83 ml/min; Total Protein* 7.5 g/dL (6.0-8.3)
[2025-05-13 12:35] LABS: Calcium* 9.0 mg/dL (8.4-10.6); Glucose* 102 mg/dL (60-115)
== END 2025-05-13 14:30 | disposition home or self-care (01) ==
PROVIDERS: Emergency Provider Family Medicine; PCP Family Medicine
DX: M43.6 Torticollis (principal); I44.7 Left bundle-branch block, unspecified
CPT/HCPCS: 36415; 70498; 72125; 80053; 82550; 82565; 84484; 85025; 93005; 93246; 99284; 99285; Q9967